=== PATIENT | female | born 1975 | race Two or more races ===

== ENCOUNTER → 2019-04-02 | Day surgery (SDC) | payer OTHER ==
--- NOTE | 2019-04-03 04:53 | OP ---
DATE OF OPERATION: 04/02/2019 PREOPERATIVE DIAGNOSIS: Right complex breast mass at 6 o'clock, cm from the nipple. POSTOPERATIVE DIAGNOSIS: Right complex breast mass at 6 o'clock, cm from the nipple. PROCEDURE: Right breast ultrasound-guided core biopsy and clip placement. ANESTHESIA: Local. ATTENDING SURGEON: Kris Negron MD ESTIMATED BLOOD LOSS: Minimal. COMPLICATIONS: None. PROCEDURE: Patient was made aware of the risks and benefits of the procedure and consented. She was placed in a supine position. Under sterile conditions with 1% lidocaine for local anesthesia a small kodi was made in the skin. Using a 13-gauge suction biopsy device via a lateral approach under ultrasound guidance multiple cores were obtained and submitted to Pathology. Likewise, under ultrasound guidance a bow tie clip was placed into the biopsy region. Well tolerated by patient. Steri-Strip and sterile bandage were applied. Will contact her with the results. Andrew [id number]
--- NOTE | 2019-04-05 15:05 | PATH ---
Surgical Pathology Report Patient Name: DEE AGUILAR [facility]. Rec. #: [id number] /Age/Gender: 1975 (Age: 43) / F Account: [id number] Location: Taken: 04/02/2019 Received: 04/02/2019 Reported: 04/05/2019 Physicians: Kris Negron M.D. Specimen(s) Received RIGHT BREAST 6:00 1 CM FN CORE BIOPSY Clinical History Nonpalpable lesion Ultrasound findings: Cystic lesion Final Diagnosis BREAST, RIGHT, 6:00, 1 CM FN, CORE BIOPSY: BENIGN BREAST TISSUE SHOWING FIBROCYSTIC CHANGES INCLUDING CYST FORMATION WITH APOCRINE METAPLASIA AND STROMAL FIBROSIS. Electronically Signed Columba Cortez M.D. Gross Description Received in formalin labeled "right breast biopsy 6:00 1 cmfn," are 4 juarez-yellow, cylindrical portions of fibroadipose tissue ranging from 1.2-1.5 cm in length and averaging 0.2 cm in diameter. The specimens are submitted in toto in one cassette. Time to formalin fixation: < 1 minute Total formalin fixation time: Approximately 6 hours. DL/04/02/2019 saudi/04/02/2019
== END | disposition home or self-care (01) ==
LOC: FRADUS-SUR 12:55
PROVIDERS: ATTEND Surgery Surgical Oncology
PROC: 0HBT3ZX Excision of Right Breast, Percutaneous Approach, Diagnostic (ICD-10-PCS; principal; 2019-04-02)
DX: N60.11 Diffuse cystic mastopathy of right breast (principal); N60.31 Fibrosclerosis of right breast; N63.10 Unspecified lump in the right breast, unspecified quadrant
CPT/HCPCS: 19083; 87899; 88305-TC; A4648

== ENCOUNTER 2021-08-10 20:30 | Emergency (ER) | payer OTHER ==
[2021-08-10 20:43] VITALS: BMI 23.9
[2021-08-10] MEDS ORDERED: METOCLOPRAMIDE HCL INJECTION 10 MG/2 ML VIAL IVPB ONE (21:15)
[2021-08-10] MEDS ORDERED: FAMOTIDINE 20 MG/50 ML IVPB 20 MG/50 ML MG IVPB ONE ×2 (21:15→21:21)
[2021-08-10] MEDS ORDERED: ACETAMINOPHEN 1000 MG/100 ML VIAL IVPB ONE (21:15)
[2021-08-10] MEDS ORDERED: ACETAMINOPHEN INJECTION 100 ML IVPB ONE (21:21)
[2021-08-10] MEDS ORDERED: METOCLOPRAMIDE HCL INJECTION 10 MG/2 ML VIAL ONE (21:21)
[2021-08-10 21:51] LABS: BASO % 0.6 % (0-2.0); EOS % 0.7 % (0-4.5); HEMATOCRIT 31.5 % (32.4-45.2); HEMOGLOBIN 10.3 GM/dL (10.7-15.3); LYMPH % 33.5 % (8-40); MCH 24.3 pg (25.7-33.7); MCHC 32.8 g/dl (32.0-36.0); MONO % 8.3 % (3.8-10.2); NEUT % 56.9 % (42.8-82.8); PLATELET COUNT 255 10^3/uL (134-434); RBC 4.26 M/mm3 (3.60-5.2); RDW 15.9 % (11.6-15.6); WHITE BLOOD COUNT 5.6 K/mm3 (4.0-10.0)
[2021-08-10 22:18] LABS: BLOOD UREA NITROGEN 12.6 mg/dL (7-18); CALCIUM 9.5 mg/dL (8.5-10.1)
[2021-08-10 22:21] LABS: CREATININE 0.7 mg/dL (0.55-1.3)
[2021-08-10 22:23] LABS: BILIRUBIN,TOTAL 0.3 mg/dL (0.2-1); TOT PROT 7.5 g/dl (6.4-8.2)
[2021-08-10 23:45] LABS: EPI CELLS 34 /uL (0-25.1); HYALINE CASTS 1 /uL (0-3.1); PH,URINE 7.5 (5.0-8.0); URINE APPEARANCE CLOUDY; URINE BACTERIA 1671 /uL (0-1359); URINE BILIRUBIN NEGATIVE (NEGATIVE); URINE COLOR YELLOW; URINE GLUCOSE (UA) NEGATIVE (NEGATIVE); URINE KETONE NEGATIVE (NEGATIVE); URINE LEUK ESTERASE NEGATIVE (NEGATIVE); URINE NITRITE NEGATIVE (NEGATIVE); URINE PROTEIN NEGATIVE (NEGATIVE); URINE RBC 22 /uL (0-23.9); URINE UROBILINOGEN 0.2 mg/dL (0.2-1.0); URINE WBC 31 /uL (0-25.8)
[2021-08-10 23:46] LABS: HCG,QUALITATIVE URINE Negative
[2021-08-11] MEDS ORDERED: KETOROLAC TROMETHAMINE 15 MG/ML VIAL IVPUSH ONE (00:16)
[2021-08-11] MEDS ORDERED: KETOROLAC TROMETHAMINE 15 MG/ML VIAL ONE (00:22)
[2021-08-11 00:56] VITALS: BP 114/75; PULSE 59; TEMP 97.9
== END 2021-08-11 00:56 | disposition home or self-care (01) ==
LOC: JER 20:30
PROC: 3E033NZ Introduction of Analgesics, Hypnotics, Sedatives into Peripheral Vein, Percutaneous Approach (ICD-10-PCS; principal; 2021-08-10)
PROC: 3E033GC Introduction of Other Therapeutic Substance into Peripheral Vein, Percutaneous Approach (ICD-10-PCS; 2021-08-10)
PROC: 3E033GC Introduction of Other Therapeutic Substance into Peripheral Vein, Percutaneous Approach (ICD-10-PCS; 2021-08-10)
PROC: 3E0333Z Introduction of Anti-inflammatory into Peripheral Vein, Percutaneous Approach (ICD-10-PCS; 2021-08-11)
DX: K80.20 Calculus of gallbladder without cholecystitis without obstruction (principal)
CPT/HCPCS: 36415; 76705-TC; 80053; 81003; 83690; 84703; 85025; 87086; 87186; 99284-25; J0131